=== PATIENT | male | born 1955 | race Caucasian/White ===

== ENCOUNTER 2016-12-27 16:25 | Inpatient (IN) | payer BC, SELFPAY ==
[~2016-12-27] VITALS: Ht 172.7 cm; Wt 102.6 kg
--- NOTE | ~2016-12-27 | CON ---
PATIENT'S NAME: KRISTY ERICKSON [facility] AGE: 61 Y [address] ROOM: [address] [place], [place] [address] LOCATION: GPCU ADMIT DATE: 12/27/2016 Consultation DISCHARGE DATE: FAMILY PHYSICIAN: Axel Valerio MD ATTENDING PHYSICIAN: JAZMIN LINARES DATE OF CONSULTATION: 12/29/2016 REFERRING PHYSICIAN: Vidal Mcpherson MD REASON FOR CONSULTATION: Anemia. HISTORY OF PRESENT ILLNESS: This is a very pleasant 61-year-old male, who was admitted on 12/27/16 with complaints of shortness of breath and chest pain. The patient has a past medical history of coronary artery disease, status post stenting to RCA as well as circumflex a few years ago. He presented to the emergency room with complaints of progressively worsening shortness of breath exertional in nature as well as chest pain across his chest. He does characterize this as burning with some questionable radiation to bilateral arms. He denied any precious nausea, vomiting, or abdominal pain with this. He recently was found to have significant fatigue at home and seen by his Cardiology Group. At that time, he was found to have a hemoglobin of 9.0 where workup endured including an upper endoscopy and colonoscopy completed on 12/21/2016. The patient was found to have extensive diverticulosis, a large hiatal hernia though no evidence of any mucosal abnormalities relating to his anemia. He then further went on to have a small bowel series on 12/25/2016 that was a normal study. We were asked to see in regard to his anemia as well as likely need for long- term anticoagulation. The patient was seen and examined. He denies any precious abdominal pain, nausea, vomiting, fever, or chills. He does admit to significant fatigue as well as shortness of breath. He did undergo heart catheterization on 12/28/2016. He likely will need his LAD stented though no stent was placed currently at this time. We were asked to see from Cardiology standpoint for clearance for long-term anticoagulation with his known recent history of anemia as well as suspected melena. He denies that it was black in color though he did state that after it disintegrated in the toilet water, it became bright red. He also noted some bright red when wiping along with "normal stool." The patient again denies any current chest pain, chest pressure, shortness of breath, fever, chills, night sweats. He does state that his weight has been stable as well. PAST MEDICAL HISTORY: Coronary artery disease, status post stenting to the RCA and circumflex; PATIENT'S NAME: KRISTY ERICKSON [facility] AGE: 61 Y [address] ROOM: [place] [address] LOCATION: GPCU ADMIT DATE: 12/27/2016 Consultation DISCHARGE DATE: FAMILY PHYSICIAN: Axel Valerio MD ATTENDING PHYSICIAN: JAZMIN LINARES A questionable history of hypertension; and diverticulosis. PAST SURGICAL HISTORY: Multiple heart catheterizations with the most recent being on 12/28/2016. SOCIAL HISTORY: The patient is a single gentleman who lives by himself. He denies any toxic habits such as alcohol, tobacco, or illicit drug use. FAMILY HISTORY: He does state that his mother had significant "bowel problems" though could not elaborate anymore. His father did have significant coronary artery disease. ALLERGIES: NO KNOWN MEDICATION ALLERGIES. CURRENT MEDICATIONS: Please refer to the medication administration record. REVIEW OF SYSTEMS: A 10-point review of systems was completed. All were negative except for those identified in the history of present illness. PHYSICAL EXAMINATION: GENERAL: A very pleasant 61-year-old male, who is lying in bed, who appears to be in no acute distress. VITAL SIGNS: Temperature 98.0, pulse of 87, respirations of 20, blood pressure 127/67, oxygen saturations 94% on room air. SKIN: [place], warm, and dry. No jaundice. HEENT: Head is normocephalic and atraumatic. Pupils are equal, round, and reactive to light. Sclerae are clear. Nonicteric. Oral mucosa is pink and moist. No thyromegaly. NECK: Soft and supple. CARDIOVASCULAR: Regular normal S1 and S2. RESPIRATORY: Respirations even and unlabored. LUNGS: Clear to auscultation. ABDOMEN: Soft, round, nontender, and nondistended. Bowel sounds positive x4 quadrants. MUSCULOSKELETAL: No muscle weakness or atrophy. EXTREMITIES: No clubbing, cyanosis, or edema. NEUROLOGIC: Grossly nonfocal. LABS AND DIAGNOSTICS: White blood cell count of 5.6, hemoglobin of 9.3, hematocrit of 30.3, MCV of 73.9, and platelets of 189. Chemistry panel includes a glucose of 89, BUN of PATIENT'S NAME: KRISTY ERICKSON [facility] AGE: 61 Y [address] ROOM: [address] [place], [place] [address] LOCATION: GPCU ADMIT DATE: 12/27/2016 Consultation DISCHARGE DATE: FAMILY PHYSICIAN: Axel Valerio MD ATTENDING PHYSICIAN: JAZMIN LINARES 14, creatinine 1.0, sodium of 141, potassium of 4.1, chloride of 111, CO2 of 20. Liver enzymes have all been within normal limits. Hemoglobin A1c of 5.7. Lipid panel includes cholesterol of 158, triglycerides of 127, HDL of 32, VLDL of 25, and LDL of 101. Iron studies completed on 12/27/2016 showed iron of 15, TIBC is 393, percent saturation of 4, ferritin is 7.50. TSH at that time was 2.510. ASSESSMENT AND PLAN: Again, this is a very pleasant 61-year-old male, who was admitted with chest pain who underwent a heart catheterization without stenting on 12/28/2016. The patient has had a recent anemia with a hemoglobin of 9. 1. Anemia, likely iron deficient from iron studies completed with a low iron at 15 and percent saturation of 4. The patient has recently undergone an upper endoscopy and colonoscopy without any evidence or etiology for the anemia. Small bowel series was also completed that was within normal limits. Questionable, if this the patient had a diverticular bleed that currently has now resolved. At this time, it is recommended for the patient to be given iron supplements for his deficiency. Due to recent GI workup with an upper endoscopy and colonoscopy, no further scopes are needed. Questionable, if the patient should undergo a capsule endoscopy for further evaluation of the small bowel, ruling out etiology for small bowel bleed. This will be discussed with Dr. Vidal Mcpherson for further recommendations. 2. Long-term anticoagulation. Again, the patient's GI system has been thoroughly evaluated with a recent upper endoscopy and colonoscopy. The patient may need to be given long-term anticoagulation, knowing the risk of possible rebleed though the risks and benefits of long-term anticoagulation does benefit utilizing his long-term anticoagulation with possible continue monitoring of the patient's GI tract. Thank you for this consult and allowing us to participate in the care of this patient. LETICIA WARD APRN FOR MD ANDREA GRESHAM/juan miguel /[id number] d: 12/29/16 1149 t: 01/04/17 1644, CONSULTATION REPORT
--- NOTE | ~2016-12-27 | CATH ---
Cardiac Diagnostic + PCI Report Demographics Patient Name DRE Willett Gender Male Date of 1955 Age 61 year(s) Patient Number [id number] Date of Study 12/28/2016 Visit Number [id number] Room Number G6[address] [place] [id number] Ht 172.72 cm Wt 97.5 kg Referring Iman Reyna Primary Physician Physician Haley GOLDSTEIN Performing Efstratiou Secondary Physician Physician Shannon Pike MD Diagnostic Efstratiou Assisting Physician Physician Shannon Pike MD Interventional Efstratiou Physician Quality Systems Manager Physician Shannon Pike MD Findings and Conclusions Diagnostic Findings and Conclusion Patent RCA and Circ stents Mid LAD stenosis with ischemic FFR. Patient is experiencing blood loss anemia and wasbeing transfused on arrival to the quality assurance lab technician. The LAD does no have angiographic characteristic of imminent closure. Diagnostic Recommendations WIll discuss with GI about his best revascularization options. Procedure Description The patient was brought to the diagnostic cardiac catheterization-EP laboratory in the fasting, non-sedated state. Informed consent was obtained in the written and verbal form after the risks and benefits were explained. The patient had no further questions and agreed to proceed. The planned puncture-incision site(s) were shaved and prepped with ChloraPrep and draped in the usual sterile manner. Conscious sedation, supplemental oxygen, and pain control medications were delivered by a registered nurse under physician guidance. Surface ECG rhythm, blood pressure measurement, and pulse oximetry were monitored throughout the procedure. Arterial access. The access site was infiltrated with lidocaine. The vessel was entered with the Seldinger technique. A sheath was advanced into the vessel and used for catheter placement. Left heart catheterization. A catheter was advanced across the aortic valve to the left ventricle under fluoroscopic guidance. Resting hemodynamics were obtained. Selective left coronary angiography. A catheter was advanced into the left coronary vessel ostium under Fluoroscopic guidance. Contrast was injected by hand. Images were obtained in multiple projections. Selective right coronary angiography. A catheter was advanced into the right coronary vessel ostium under fluoroscopic guidance. Contrast was injected by hand. Images were obtained in multiple projections. FFR measurement was performed. The vessel was entered with a guiding catheter. The FFR wire was normalized and then advanced across the lesion. Maximum hyperemia was achieved using adenosine. Arterial artery hemostasis was achieved. The patient was transferred to a regular nursing floor via cart accompanied by a nurse. The patient left the laboratory in stable condition. Diagnostic Cath Status: Urgent Procedure Procedure Type Diagnostic procedure:Angiography:, Coronary Angios w/[facility] PCI procedure:Additional Imaging:, FFR/iFR: Indications: NSTEMI. The procedure was explained in detail to the patient. Risks, complications and alternative treatments were reviewed. Written consent was obtained. Medications Reviewed with Patient prior to Procedure. Angiographic Findings Dominance: Right Cardiac Arteries and Lesion Findings LMCA: Lesion on LMCA: Distal subsection.30% stenosis . LAD: LAD long area in mid vessel narrowed 50-70%. Lesion on Mid LAD: Mid subsection.70% stenosis . Pre procedure CLOVIS III flow was noted. Culprit lesion. FFR + + + + !FFR !Stage/Medication !Dosage ! + + + + !0.71 !Adenosine (I.V) !140 ! + + + + Devices used - Verrata Pressure Wire. Number of passes: 1. Lesion on 1st Dia% stenosis . LCx: Circ mid vessel patent stent. Distal vessel stent jailed with 60% ostial narrowing.There is a previous stent on Mid CX showing wide patency. Lesion on Mid CX: Ostial.40% stenosis . RCA: RCA long proximal stents area about 30% narrowed-RV branch jailed with 60% ostial narrowing.There is a previous stent on Prox RCA Mid subsection showing focal ISR. Coronary Tree Procedure Data Procedure Date Date: 12/28/2016Start: 04:47 PMEnd: 05:43 PM Entry Locations - Retrograde Percutaneous access was performed through the Right Radial artery (Primary location). A 6 Fr sheath was inserted. Unsuccessful closure attempt was performed using: an R band. Hemostasis was successfully obtained using Mechanical Compression. Closure Comments: Radial band applied by Emil, 15 ml of air. Procedure Medications Order and Administration + + + +---------+ !Time !Medication !Dosage !Route ! + + + +---------+ 12/28/2016 !Pack Red Blood Cells !1 units !I.V. ! !04:05 PM ! ! ! ! + + + +---------+ 12/28/2016 !Fentanyl !50 mcg !I.V. ! !04:42 PM ! ! ! ! + + + +---------+ 12/28/2016 !Versed !1 mg !I.V. ! !04:42 PM ! ! ! ! + + + +---------12/28/2016 !PAE Radial Cocktail: Heparin 5000 ! !I.A. ! !04:49 PM !units, Nitroglycerin 200mcg, ! ! ! ! !Verapamil 3 mg (ACC_3) ! ! ! + + + +---------12/28/2016 !0.9% NaCl !200 ml !I.V. ! !04:53 PM ! ! !bolus ! + + + +---------12/28/2016 !Oxygen !2 l/min !NC ! !04:54 PM ! ! ! ! + + + +---------12/28/2016 !Fentanyl !50 mcg !I.V. ! !04:57 PM ! ! ! ! + + + +---------12/28/2016 !Heparin (ACC_3) !3000 units !I.V. ! !05:09 PM ! ! !bolus ! + + + +---------+ !12/28/2016 !Heparin (ACC_3) !5000 units !I.V. ! !05:16 PM ! ! !bolus ! + + + +---------+ !12/28/2016 !Adenosine (IV) !140 !I.V. drip! !05:29 PM ! !mcg/kg/min ! ! + + + +---------+ !12/28/2016 !Adenosine (IV) ! !I.V. drip! !05:31 PM ! ! ! ! + + + +---------+ !12/28/2016 !Oxygen ! !NC ! !05:38 PM ! ! ! ! + + + +---------+ Devices Used - A6 Fr. BS JR 4 Diag. Catheterwas used for:Right coronary angiography. - A6 Fr. BS JL 3.5 Diag. Catheterwas used for:Left coronary angiography. - A6 Fr. XBLAD 3.5 Guide Catheterwas used for:Fractional Flow [place] measurments. Contrast Material - Isovue 13515 ml Fluoroscopy Time: Diagnostic: 11:18 minutes. Total: 11:18 minutes. Fluoroscopy Dose: Diagnostic: 1456 mGy. Total: 1456 mGy. Estimated Blood Loss: 20 ml. Medical History Performed Procedures and Imaging Results - No ACC stress or imaging studies were performed. Allergies - Other:(Mycins). Risk Factors The patient risk factors include:prior PCI;family history of premature CAD, last creatinine: 1 mg/dl, creatinine clearance: 108.33 ml/min, dyslipidemia and prior [place] . Admission Data Admission Date: 12/27/2016 Admission Time: 05:40 PM Admit Source: Emergency department Insurance Payors: Private health insurance. Admission Medications + +------+-------+ + + + + !Medication!Dosage!Times !Last !Last !Administered !Comments ! ! ! !Per Day!Delivery !Delivery ! ! ! ! ! ! !Date !Time ! ! ! + +------+-------+ + + + + !Aspirin ! ! ! ! !Yes ! ! !(any) ! ! ! ! ! ! ! + +------+-------+ + + + + !Statin ! ! ! ! !Yes ! ! !(any) ! ! ! ! ! ! ! + +------+-------+ + + + + Clinical Evaluation Leading to Procedure - The patient's CAD presentation was assessed as: Non-STEMI. - The patient's anginal syndrome during the past two weeks was assessed as: Class IV according to the [place] Cardiovascular Society Classification System (CCS). Snapshots Hemodynamics Condition: Rest Estimated: Heart Rate: 89 bpm Pressures (mmHg) +-----+ + !Site !Pressure ! +-----+ + !AO !103/68 (79) ! +-----+ + !LV !140/0 ,11 ! +-----+ + !LV !62/3 ,-8 ! +-----+ + !AO !105/70 (87) ! +-----+ + !LV !129/0 ,13 ! +-----+ + !AO !/72 () ! +-----+ + Shunts Oxygen Values O2 Capacity 122.4 Signatures dtt: Sabra Warren dtd: 12/28/16 1647 Physician Self Edit
--- NOTE | ~2016-12-27 | ER ---
PATIENT'S NAME: KRISTY ERICKSON [facility] AGE: 61 Y [address] ROOM: [place] [address] LOCATION: GPCU ADMIT DATE: 12/27/2016 ER/Outpatient Report DISCHARGE DATE: FAMILY PHYSICIAN: Axel Valerio MD ATTENDING PHYSICIAN: JAZMIN GOOD TIME OF ARRIVAL: 16:24. TIME OF EVALUATION: 16:24. CHIEF COMPLAINT: Chest pain. HISTORY OF PRESENT ILLNESS: The patient is a 61-year-old male, who presented to the Emergency Department today with the chief complaints of chest pain and dyspnea on exertion. He reports this started about 24 hours prior to arrival. He reports that every time he gets up to walking, where he gets extremely short of breath. He gets diaphoretic with it. He has been feeling weak and ill for the past three weeks. The patient recently had gastrointestinal bleed with some dark stools. He underwent a colonoscopy and endoscopy at [facility] He denies any orthopnea. He denies any ripping or tearing sensation. No radiation to his back. No radiation. The pain is currently 10/10 in severity. PAST MEDICAL HISTORY: 1. Coronary artery disease with stents to right coronary artery and circumflex. 2. Hypertension. 3. Recent gastrointestinal bleeding. PAST SURGICAL HISTORY: 1. Left hernia. 2. Laminectomy. 3. Stents to circumflex. SOCIAL HISTORY: The patient denies any tobacco use. He reports occasional alcohol use. He denies illicit drug use. PATIENT'S NAME: KRISTY ERICKSON [facility] AGE: 61 Y [address] ROOM: [place] [address] LOCATION: GPCU ADMIT DATE: 12/27/2016 ER/Outpatient Report DISCHARGE DATE: FAMILY PHYSICIAN: Axel Valerio MD ATTENDING PHYSICIAN: JAZMIN GOOD ALLERGIES: NONE KNOWN TO MYCINS. MEDICATIONS: Please see list. REVIEW OF SYSTEMS: All systems were reviewed by myself, and are negative with the exception of those discussed in history of present illness and past medical history. PHYSICAL EXAMINATION: VITAL SIGNS: Blood pressure was 132/81, pulse was 100, respiratory rate was 20, temperature was 99.0, and oxygen saturation was 96% on room air. GENERAL: The patient is a 61-year-old male, who appeared his stated age, in no acute distress. HEENT: Head: Normocephalic and atraumatic. Eyes: Pupils are equal, round, and reactive to light and accommodation. Extraocular motions are intact. Mildly pale conjunctivae. NECK: Supple. There is no nuchal rigidity. CARDIOVASCULAR: Tachycardic. No murmurs, rubs, or gallops. LUNGS: Clear to auscultation bilaterally. No wheezes, rales, or rhonchi. ABDOMEN: Soft, nontender, and nondistended. No rebound, rigidity, or guarding. MUSCULOSKELETAL: The patient moves all four extremities. SKIN: Warm and dry. There are no rashes or lesions noted. LABORATORY DATA AND DIAGNOSTIC STUDIES: Labs and x-rays are obtained. EKG is obtained, was interpreted by myself and showed sinus rhythm with a rate of 94, normal axis, and normal interval. No ST elevation or ST depression. There were T-wave inversions in V1, V2, and V3. These are new T-wave inversions compared to the EKG on 09/17/2013. Complete blood count is unremarkable, except for hemoglobin of 9.8. Coags are normal. ProBNP is 820. Comprehensive metabolic panel is unremarkable. Liver function tests are normal. PATIENT'S NAME: KRISTY ERICKSON [facility] AGE: 61 Y [address] ROOM: [place] [address] [facility] ADMIT DATE: 12/27/2016 ER/Outpatient Report DISCHARGE DATE: FAMILY PHYSICIAN: Axel Valerio MD ATTENDING PHYSICIAN: JAZMIN GOOD Mag is normal. Troponin is elevated at 0.094. Chest x-ray showed cardiomegaly, which is stable. No acute process. IMPRESSION: 1. [id number] myocardial infarction. 2. History of recent gastrointestinal bleeding. 3. Acute blood loss anemia. 4. History of coronary artery disease, status post stenting to the right coronary artery and circumflex. 5. Initial visit. EMERGENCY DEPARTMENT COURSE: The patient was brought back to the Examination Room. Seen and evaluated by myself. IV was established. Laboratory analysis and imaging were obtained as described above. The results are obtained as described above. Due to the patient's recent gastrointestinal bleed, aspirin and heparin were held due to the risk of bleeding. I have discussed the results with the patient. Recommendation is admission to the hospital for further evaluation, treatment, and management. I have contacted Dr. Good and discussed the case with him. He has seen and evaluated the patient now here in the Emergency Department. Please see his dictation. DISPOSITION: The patient was admitted under the care of Hospitalist Service and Dr. Good in stable condition. DO ROJAS YOUNG/juan miguel /[id number] d: 12/28/16 0723 t: 12/29/16 0757, OUTPATIENT REPORT
--- NOTE | ~2016-12-27 | CON ---
PATIENT'S NAME: KRISTY ERICKSON [facility] AGE: 61 Y [address] ROOM: [place] [address] LOCATION: GPCU ADMIT DATE: 12/27/2016 Consultation DISCHARGE DATE: FAMILY PHYSICIAN: Axel Valerio MD ATTENDING PHYSICIAN: JAZMIN LINARES REFERRING PHYSICIAN: Vidal Mcpherson MD REASON FOR CARDIOLOGY CONSULTATION: Chest pain. HISTORY OF PRESENT ILLNESS: This is a 61-year-old male with complaints of chest pain that he describes as burning. He also complains of some diaphoresis. He states he has been having some shortness of breath extremely as well as some presyncopal episode. No actual loss of consciousness or complete syncope. He has an extensive history of coronary artery disease with an inferior wall myocardial infarction in 2012 in which he received a stent to his RCA. He had further complaints of angina in 2014 and he received a stent to his circumflex at that time. He also recently has been noting some blood in his stool and had an upper and lower endoscopy with Dr. Flower at [facility]. That showed a normal upper endoscopy with extensive bilateral diverticulosis to his lower endoscopy. There were biopsies performed. He has minimally elevated troponins and does have inverted T-waves in his anterior wall. There is also a notation of previously untreated diagonal coronary artery disease. PAST MEDICAL HISTORY: 1. Coronary artery disease as stated in the HPI. 2. Hypertension. 3. Previous anemia from a suspected GI bleed. 4. GERD. 5. Hyperlipidemia. PAST SURGICAL HISTORY: 1. Partial laminectomy to L3 and a full laminectomy to L4. 2. Hernia repair x2. FAMILY HISTORY: There is noted family history of "heart problems." He also has a sister with a history of diverticulitis and a heart murmur. SOCIAL HISTORY: The patient denies ever using tobacco. He does admit to alcohol use on 3 days a week, and on those days, he will have 1 alcoholic drink. He denies illicit drug use. CURRENT MEDICATIONS: PATIENT'S NAME: KRISTY ERICKSON [facility] AGE: 61 Y [address] ROOM: [place] [address] LOCATION: GPCU ADMIT DATE: 12/27/2016 Consultation DISCHARGE DATE: FAMILY PHYSICIAN: Axel Valerio MD ATTENDING PHYSICIAN: JAZMIN LINARES 1. Heparin IV per ACS protocol. 2. Protonix 80 mg IV twice daily. 3. Benadryl 25 mg p.o. radiation / chemistry technician at the OR. 4. Lipitor 80 mg p.o. daily in the evening. 5. Valium 5 mg p.o. radiation / chemistry technician at the OR. MEDICATION ALLERGIES: No known medication allergies. REVIEW OF SYSTEMS: Pertinent positive review of systems listed in HPI. All other review of systems evaluated and negative. PHYSICAL EXAMINATION: VITAL SIGNS: Temperature 98.3, pulse 83, respirations 20, blood pressure 144/76, and O2 saturation 94% on room air. The patient weighs 97.5 kg. SKIN: [place], warm, and dry. EYES: Sclerae clear. No xanthelasmas. ENT: Oral mucosa is pink and moist. No jugular venous distention. No carotid bruits. CHEST: Respirations are even and unlabored. Lungs are clear to auscultation. HEART: Regular rate and rhythm. Normal S1, S2. No murmurs, rubs, or gallops. ABDOMEN: Soft and nontender. MUSCULOSKELETAL: Gait is normal. EXTREMITIES: Peripheral pulses palpable. No clubbing, cyanosis, or edema. PSYCH: Alert and oriented. Mood and affect are appropriate. IMPRESSION AND PLAN: Per Dr. Warren: 1. Unstable angina. 2. Previous history of coronary artery disease with stenting. 3. Hypertension. 4. Recent gastrointestinal bleeding with upper and lower endoscopy completed. Plan will be to proceed with a selective coronary angiography and possible percutaneous intervention in the a.m. We have talked to Dr. Mcpherson and the Hospitalist Service and the patient himself is also aware that dual anti- platelet therapy could result in further bleeding. We will check an echocardiogram to fully evaluate ejection fraction as well as look for wall motion valvular abnormalities. We will continue to monitor, evaluate, and treat as appropriate. Thank you for this consult. Thank you for allowing [facility] to interact in the care of this patient. PATIENT'S NAME: KRISTY ERICKSON [facility] AGE: 61 Y [address] ROOM: [place] [address] LOCATION: GPCU ADMIT DATE: 12/27/2016 Consultation DISCHARGE DATE: FAMILY PHYSICIAN: Axel Valerio MD ATTENDING PHYSICIAN: JAZMIN LINARES BRIANNE BURROWS MD DEH/modl /[id number] d: 12/28/161999 t: 01/13/17 1037, CONSULTATION REPORT
--- NOTE | ~2016-12-27 | DS ---
PATIENT'S NAME: KRISTY ERICKSON [facility] AGE: 61 Y [address] ROOM: G6322 [place], [place] [address] LOCATION: GPCU ADMIT DATE: 12/27/2016 Discharge Summary DISCHARGE DATE: FAMILY PHYSICIAN: Axel Valerio MD ATTENDING PHYSICIAN: Jazmin Good PRINCIPAL DIAGNOSIS: Non-ST elevation myocardial infarction. SECONDARY DIAGNOSES: 1. Microcytic anemia. 2. Iron deficiency. 3. Acute blood loss anemia. 4. History of coronary artery disease. HOSPITAL COURSE: A 61-year-old gentleman with a past medical history of coronary artery disease status post right coronary artery and circumflex stenting in the past, presented to the emergency department with chief complaint of shortness of breath as well as heartburn around the chest. Initial evaluation in the emergency department showed T-wave inversion in the EKG as well as elevation in the troponin levels, which went up to 1.42. Cardiology consultation was made and the patient was taken to the catheterization lab the next day. There was diffuse disease of LAD, likely 70% per Cardiology verbal report, which needs intervention. The patient was found to be anemic with a hemoglobin around 9 with the ferritin level of 7. There was concern of acute GI bleeding and need of dual antiplatelet after the stent placement. No intervention was done at that point. [facility] patient had colonoscopy as well as upper endoscopy done about 2 weeks ago. Those reports showed that he had extensive diverticulosis, but no active bleeding on that day was noted. Given this scenario, GI consultation was made and they recommended doing a capsule endoscopy, which they recommended doing as an outpatient. It was discussed with Cardiology and they wanted the patient discharged home on the same medication at this point. They said once the capsule endoscopy is done and he is cleared from the Gastroenterology standpoint, we will go ahead and do the stenting of the LAD in future. During the course of the hospitalization, he was given 2 units of packed red blood cells and two infusion of iron. He will be discharged home with close followup with Gastroenterology. DISCHARGE MEDICATIONS: 1. Aspirin 81 mg p.o. every day. 2. Plavix 75 mg p.o. every day. 3. Lipitor 80 mg p.o. every day. 4. Metoprolol 12.5 mg p.o. twice daily. 5. Amlodipine 2.5 mg p.o. every day. PATIENT'S NAME: KRISTY ERICKSON [facility] AGE: 61 Y [address] ROOM: [id number] [place] [id number] [facility] ADMIT DATE: 12/27/2016 Discharge Summary DISCHARGE DATE: FAMILY PHYSICIAN: Axel Valerio MD ATTENDING PHYSICIAN: Jazmin Good 6. Pantoprazole 40 mg p.o. daily. 7. Nitroglycerin 0.4 mg sublingual as needed p.r.n. for chest pain. 8. Iron sulfate 325 mg p.o. t.i.d. 9. Cyanocobalamin 1000 mcg p.o. once daily. 10. Folic acid 1 mg p.o. b.i.d. DISCHARGE ACTIVITIES: As tolerated. DIET: Low-sodium diet. FOLLOWUP: Follow up with Gastroenterology in 3 days to schedule for the capsule endoscopy and then follow up with Dr. Hilliard from Cardiology to get LAD stenting done. CONDITION ON DISCHARGE: Fair. I spent 40 minutes in discharge planning and coordination of care in this patient. JAZMIN GOOD MD MARU/juan miguel /[id number] d: 12/30/[id number] t: 12/31/16 1519, DISCHARGE SUMMARY
--- NOTE | ~2016-12-27 | ECHO ---
Transthoracic Echocardiography Report (TTE) Demographics Patient Name KRISTY ERICKSON Date of Study 12/28/2016 Patient Number [id number] Visit Number [id number] Date of 1955 Room Number G6322 Gender Male Number Age 61 year(s) Referring Iman De Leon Counter Hop Josh Moreau Physician MD Florentino Chahal MD Physician Interpreting Briana Ortega Labor [employer] Employment Paralegal Physician Shahzad GOLDSTEIN Supervising Ordering Florentino Chahal MD/MLP Physician Nurse Stress Channel Machine Operator Conclusions Contractility Score Summary Normal Left Ventricular contractility was noted. Summary The estimated left ventricular ejection fraction is 55%. Mild concentric left ventricular hypertrophy. Diastolic assessment reveals Grade I diastolic dysfunction. The right atrium is mildly dilated. Procedure Type of Study TTE procedure:2D Echocardiogram, M-Mode, Doppler , Color Doppler. Procedure Date Date: 12/28/2016 Start: 07:11 AM Study Location: Inpatient Portable Technical Quality: Adequate visualization Indications:Chest pain and Elevated Troponin. Additional Indications:NSTEMI Appropriate Use Criteria: 9 Patient Status: Routine HR: 83 bpm BP: 105/64 mmHg Allergies - Other:(Mycins). M-Mode/2D Measurements LV Diastolic Dimension: 4.34 cm LV Systolic Dimension: 2.95 cm LV Septum Diastolic: 1.24 cm LV PW Diastolic: 1.17 cm AO Root Dimension: 3 cm Cardiac Output: 5.03 l/min LA Dimension: 2.9 cm EF Estimated: 55 % LVOT: 2 cm LVOT VTI: 19.3 cm RV Base: 2.68 cm LV Stroke volume: 60.6 ml RV Length: 7.97 cm TAPSE: 1.94 cm TDI-S': 10.5 cm/s Doppler Measurements AV Peak Velocity: 1.35 m/s MV Peak E-Wave: 0.62 m/s AV Peak Gradient: 7.29 mmHg MV Peak A-Wave: 0.87 m/s AV Mean Gradient: 5 mmHg MV E/A Ratio: 0.71 LVOT Peak Velocity: 1.01 m/s MV P1/2t: 58 msec TR Gradient:13.99 mmHg PV Peak Velocity: 0.71 m/s Estimated RAP:3 mmHg PV Peak Gradient: 2.03 mmHg Estimated RVSP: 17 mmHg Estimated PASP: 16.99 mmHg E' Septal Velocity: 0.06 m/s A' Septal Velocity: 0.1 m/s E' Lateral Velocity: 0.1 m/s A' Lateral Velocity: 0.14 m/s Findings Left Ventricle Mild concentric left ventricular hypertrophy. Diastolic assessment reveals Grade I diastolic dysfunction. Right Ventricle Normal right ventricle structure and function. Left Atrium Normal left atrial size. Right Atrium The right atrium is mildly dilated. IVC measures 1.83 cm with inspiratory collapse. Mitral Valve Mild mitral annular calcification. Aortic Valve The aortic valve is mildly sclerotic. Tricuspid Valve Trivial tricuspid regurgitation by color Doppler. Pulmonic Valve Normal pulmonic valve structure and function. Pericardial Effusion No evidence of pericardial effusion. Miscellaneous Visualized portions of the aortic root and ascending aorta appear normal in size. Pleural Effusion No evidence of pleural effusion. Contractility Score LV regional wall motion:(0-Non visualized 1-Normal 2-Hypokinesis 3-Akinesis 4-Dyskinesis 5-Aneurysm) Signature dtt: Sabra Warren dtd: 12/28/16 0711 Physician Self Edit
--- NOTE | ~2016-12-27 | HP ---
PATIENT'S NAME: KRISTY ERICKSON [facility] AGE: 61 Y [address] ROOM: [place] [address] LOCATION: GPCU ADMIT DATE: 12/27/2016 History & Physical DISCHARGE DATE: FAMILY PHYSICIAN: Axel Valerio MD ATTENDING PHYSICIAN: JAZMIN LINARES DATE OF SERVICE: CHIEF COMPLAINT: Shortness of breath and heartburn. HISTORY OF PRESENT ILLNESS: A 61-year-old gentleman with a past medical history of coronary artery disease, status post stenting to RCA as well as circumflex couple of years ago. He presented to the emergency department today with shortness of breath which has been going on for couple of weeks now, progressively getting worse, exertional in nature, associated with pain around his eyes as well as across the chest, which is characterized as burning, 5/10, questionable radiation to both arms, associated with diaphoresis but no nausea or vomiting, but significant dizziness has been reported as well. On further inquiry, he denied having any PND, orthopnea, or leg swelling. He also reported he has been having dark tarry stools for a couple of weeks now and he went to the [facility] and ended up getting upper endoscopy as well as lower endoscopy. He also underwent barium series, but he does not know the results of those. REVIEW OF SYSTEMS: All the systems reviewed and were negative except what is mentioned in the HPI. PAST MEDICAL HISTORY: 1. Coronary artery disease, status post stent to RCA as well as circumflex. 2. Questionable history of hypertension. MEDICATIONS: Please see MAR. ALLERGIES: NO KNOWN DRUG ALLERGIES. FAMILY HISTORY: Family history significant for significant coronary artery disease in dad. PHYSICAL EXAMINATION: VITAL SIGNS: Blood pressure 146/79, 78, 16, afebrile, saturating fine on room PATIENT'S NAME: GEOVANNYKRISTY Pike [facility] AGE: 61 Y [address] ROOM: [place] [address] LOCATION: GPCU ADMIT DATE: 12/27/2016 History & Physical DISCHARGE DATE: FAMILY PHYSICIAN: Axel Valerio MD ATTENDING PHYSICIAN: JAZMIN LINARES air. GENERAL: In no acute distress. Alert, oriented x3. HEENT: Head: Atraumatic, normocephalic. Eyes: Nonicteric. No pallor. Oropharynx: Dry mucous membranes. CARDIOVASCULAR: S1 and S2. No murmurs, gallops, or rubs. LUNGS: Clear to auscultation bilaterally. ABDOMEN: Soft, nontender, and nondistended. Bowel sounds are present. EXTREMITIES: No clubbing, cyanosis, or edema. PSYCH: Normal affect, mood, and speech. NEURO: Cranial nerves 2 through 12 intact. No motor or sensory deficits. MUSCULOSKELETAL: No muscle tenderness or swelling noted. DIAGNOSTIC DATA: Chest x-ray done in the emergency department today did not reveal any acute infiltrate or pulmonary edema. EKG done in the emergency department showed T- wave inversions in V1, V2, and V3, which are new from the previous EKGs. First set of troponin was elevated at 0.094. Next set is pending at this point. ProBNP is elevated 820. CBCs impressive for microcytic anemia with a hemoglobin of 9.8. BMP was largely unremarkable. ASSESSMENT/PLAN: 1. Non ST-elevation myocardial infarction. 2. Melena. 3. Gastrointestinal bleeding. 4. Acute blood loss anemia. 5. History of coronary artery disease, status post right coronary artery and circumflex stenting. PLAN: We are going to admit this patient. We are going to give him only baby aspirin 81 mg given his ongoing GI bleeding. We are going to treat him with Lipitor 80 mg. We are going to get stat results of the endoscopy which was done over at the [facility] not so long ago. Based on those results, we have to anticoagulate this patient. Cardiology consultation will be obtained. Based on his hemodynamic status, he might benefit from Gastroenterology consultation as well. We are going to start him on high dose of pantoprazole at this point. Further management will depend on his progress in this hospitalization. JAZMIN LINARES MD PATIENT'S NAME: KRISTY ERICKSON [facility] AGE: 61 Y [address] ROOM: [place] [address] [facility]: [facility] ADMIT DATE: 12/27/2016 History & Physical DISCHARGE DATE: FAMILY PHYSICIAN: Axel Valerio MD ATTENDING PHYSICIAN: JAZMIN LINARESl /[id number] D: [id number] T: [id number] HISTORY & PHYSICAL
[2016-12-27 16:58] LABS: BASOPHIL % 0.4 %; EOSINOPHIL # 0.3 K/uL (0.0-0.5); EOSINOPHIL % 4.5 %; HEMATOCRIT 34.2 % (37.0-53.0); HEMOGLOBIN 9.8 g/dL (11.0-16.0); IMMATURE GRANULOCYTE % 0.3 %; LYMPHOCYTE # 1.1 K/uL (0.8-4.0); LYMPHOCYTE % 14.9 %; MCH 21.7 pg (27.0-34.0); MCHC 28.7 gm/dL (32.0-36.5); MCV 75.8 fl (83.0-98.0); MONOCYTE # 0.5 K/uL (0.0-1.0); MPV 9.9 fl (9.4-12.4); NEUTROPHIL # (ANC) 5.3 K/uL (1.4-9.0); NEUTROPHIL % 72.9 %; NRBC % 0 /100WBC (0-0.00); PLATELET COUNT 225 K/uL (150-450); RBC 4.51 M/uL (3.50-5.50); RDW-CV 18.1 % (11.9-14.6); WBC 7.3 K/uL (4.0-11.0)
[2016-12-27 17:08] LABS: PROTIME 10.7 SECONDS (9.6-11.1); PTT 24 SECONDS (25-32)
[2016-12-27 17:18] LABS: ALBUMIN 3.4 gm/dL (3.5-5.0); ALK PHOS 116 IU/L (33-138); ALT 24 IU/L (12-78); ANION GAP 14.1 (10.0-19.0); AST 27 IU/L (10-40); BLOOD UREA NITROGEN 13 mg/dL (6-24); CALCIUM 8.1 mg/dL (8.5-10.5); CHLORIDE 108 mMol/L (96-110); CO2 22 mMol/L (22-32); CPK 184 IU/L (35-332); CREATININE 1.1 mg/dL (0.6-1.3); ESTIMATED GFR (MDRD EQUATION) > 60; MAGNESIUM 2.3 mg/dL (1.3-2.6); POTASSIUM 4.1 mMol/L (3.7-5.1); SODIUM 140 mMol/L (135-145); TOTAL BILIRUBIN 0.4 mg/dL (0.0-1.5); TOTAL PROTEIN 7.6 g/dL (6.0-8.4)
[2016-12-27] MEDS ORDERED: NITROSTAT0.4 MG SL (20:04)
[2016-12-27] MEDS ORDERED: LIPITOR80 MG PO (20:05)
[2016-12-27] MEDS ORDERED: ASPIR-TRIN325 MG PO (20:05)
[2016-12-27 21:07] LABS: HEMATOCRIT 32.2 % (37.0-53.0); HEMOGLOBIN 9.3 g/dL (11.0-16.0)
--- NOTE | 2016-12-28 01:03 | NUR ---
Patient arrived to PCU at 1925 from ER for chest pain. Patient was at home when he began feeling short of breath and reports feeling like he was "blacking out" at times, so he called 911. Patient lives at home alone. Dr. Good saw patient in ER and Dr. Hilliard saw patient when he arrived to the floor. Patient has no complaints of pain upon arriving to the floor, just states that his chest does feel somewhat tight. Vitals stable: 98.4 temp, 134/84, 90bpm, 95% on RA, 20 resp/min. Patient is A/Ox3. Calm and cooperative with cares. Dr. Hilliard does plan to complete a heart cath for patient tomorrow.
[2016-12-28 05:46] LABS: BASOPHIL % 0.7 %; EOSINOPHIL # 0.4 K/uL (0.0-0.5); EOSINOPHIL % 6.1 %; HEMATOCRIT 29.9 % (37.0-53.0); IMMATURE GRANULOCYTE % 0.2 %; LYMPHOCYTE # 1.6 K/uL (0.8-4.0); LYMPHOCYTE % 26.6 %; MCH 22.4 pg (27.0-34.0); MCHC 30.1 gm/dL (32.0-36.5); MCV 74.6 fl (83.0-98.0); MONOCYTE # 0.6 K/uL (0.0-1.0); MONOCYTE % 10.2 %; MPV 9.2 fl (9.4-12.4); NEUTROPHIL # (ANC) 3.3 K/uL (1.4-9.0); NEUTROPHIL % 56.2 %; NRBC % 0 /100WBC (0-0.00); PLATELET COUNT 191 K/uL (150-450); RBC 4.01 M/uL (3.50-5.50); RDW-CV 18.1 % (11.9-14.6); WBC 5.9 K/uL (4.0-11.0)
[2016-12-28 06:14] LABS: ANION GAP 12.1 (10.0-19.0); BLOOD UREA NITROGEN 15 mg/dL (6-24); CALCIUM 8.2 mg/dL (8.5-10.5); CHLORIDE 108 mMol/L (96-110); CO2 24 mMol/L (22-32); ESTIMATED GFR (MDRD EQUATION) > 60; POTASSIUM 4.1 mMol/L (3.7-5.1); SODIUM 140 mMol/L (135-145)
[2016-12-28 08:58] LABS: HEMOGLOBIN 8.9 g/dL (11.0-16.0)
[2016-12-28] MEDS ORDERED: NORVASC2.5 MG PO (10:18)
[2016-12-28] MEDS ORDERED: PLAVIX75 MG PO (10:18)
[2016-12-28] MEDS ORDERED: ASPIRIN325 MG PO (10:19)
[2016-12-28] MEDS ORDERED: LOPRESSOR25 MG PO (10:19)
--- NOTE | 2016-12-28 16:36 | NUR ---
Significant Event: AOx3, SBP 100s-140s, VS otherwise WNL on RA. Describes diffuse dull pain on left side of chest, rating 0-2/10. Lungs sound clear bilat. Elizabeth patent, draining yellow urine. C/o tenderness to tip of penis early in the morning and later states it resolved. No evidence of trauma or bleeding. 1 unit PRBCs started just prior to going to labor law professor. Heparin and NS infusing to L) PIV without complication. Pleasant and cooperative with cares. Follow up: Per plan of care post-cath.
[2016-12-28 19:08] LABS: HEMATOCRIT 32.4 % (37.0-53.0); HEMOGLOBIN 9.7 g/dL (11.0-16.0)
[2016-12-28 21:10] LABS: HEMATOCRIT 30.1 % (37.0-53.0)
[2016-12-29 03:49] LABS: BASOPHIL # 0.1 K/uL (0.0-0.2); BASOPHIL % 0.9 %; EOSINOPHIL # 0.3 K/uL (0.0-0.5); EOSINOPHIL % 5.9 %; HEMATOCRIT 30.3 % (37.0-53.0); HEMOGLOBIN 9.3 g/dL (11.0-16.0); IMMATURE GRANULOCYTE % 0.2 %; LYMPHOCYTE # 1.1 K/uL (0.8-4.0); LYMPHOCYTE % 18.7 %; MCH 22.7 pg (27.0-34.0); MCHC 30.7 gm/dL (32.0-36.5); MCV 73.9 fl (83.0-98.0); MONOCYTE # 0.6 K/uL (0.0-1.0); MONOCYTE % 9.8 %; MPV 8.6 fl (9.4-12.4); NEUTROPHIL # (ANC) 3.6 K/uL (1.4-9.0); NEUTROPHIL % 64.5 %; NRBC % 0 /100WBC (0-0.00); PLATELET COUNT 189 K/uL (150-450); RDW-CV 17.9 % (11.9-14.6); WBC 5.6 K/uL (4.0-11.0)
[2016-12-29 04:03] LABS: ANION GAP 14.1 (10.0-19.0); BLOOD UREA NITROGEN 14 mg/dL (6-24); CALCIUM 7.8 mg/dL (8.5-10.5); CHLORIDE 111 mMol/L (96-110); CO2 20 mMol/L (22-32); ESTIMATED GFR (MDRD EQUATION) > 60; POTASSIUM 4.1 mMol/L (3.7-5.1); SODIUM 141 mMol/L (135-145)
--- NOTE | 2016-12-29 04:45 | NUR ---
Significant Event: A/0 X 3. HAS REMINED IN BED ENTIRE SHIFT TURNS SELF VERY FREQUENTLY. SBP 100'S TO 130'S, HR 80-90'S. AFEBRILE. 02 SATS MID 90'S ON RA. CATH TO RIGHT RADIAL NOW HAS BAND-AID AND COBAND APPLIED WITH NO COMPLICATIONS, CSM WNL. 1 UNIT BLOOD INFUSED. HGB THIS AM 9.3. 1 L NS FINSIHED INFUSING, IV NOW SL. CONROY REMAINS WITH 1050 UOP. HAS NOT COMPLAINED OF ANY PAIN DURING SHIFT, NO PAIN MEDS GIVEN. Follow up: WILL NEED STENT TO LAD BUT NEED TO CLEAR WITH GI DUE TO ANTICOAGULANTS NEEDED AND GI ISSUES.
[2016-12-29 09:15] LABS: HEMOGLOBIN 9.7 g/dL (11.0-16.0)
--- NOTE | 2016-12-29 12:23 | NUR ---
Introduced self and CM role to patient late this morning. Plan is to return back to his apartment. He states he is nervous about going home because he feels really weak. He states he has his elderly mother that could help him but no siblings or other family members. Told pt I will follow along with his chart and check in with him if anything changes and to see how he is feeling when he is cleared to discharge. Current plan for home. Will continue to follow and provide assistance as needed. CM Vice Principal TH.
--- NOTE | 2016-12-29 16:00 | NUR ---
Significant Event: Patient A/O x 3. Up in hallways with minimal assistance. VSS on RA. Patient states he is short of breath with activity although O2 saturations remain >90%. Patient was to dismiss and then have GI scope outpatient and follow-up with Dr. Sterling at a later date for heart cath reevalutation, but refuses to be dismissed due to his friend stating it is a safety risk. Patient will stay until at least Wednesday for Dr. Mcpherson to scope him. L)hand and R)hand PIV, SL. Gave 1 unit PRBC's and started on IV iron x 3 doses. Follow up: Continue as per plan of care. Monitor H&H. Scope on Wednesday.
[2016-12-29 21:02] LABS: HEMATOCRIT 32.9 % (37.0-53.0); HEMOGLOBIN 10.1 g/dL (11.0-16.0)
[2016-12-30 04:22] LABS: BASOPHIL # 0.1 K/uL (0.0-0.2); BASOPHIL % 0.9 %; EOSINOPHIL # 0.4 K/uL (0.0-0.5); EOSINOPHIL % 6.2 %; HEMATOCRIT 34.3 % (37.0-53.0); HEMOGLOBIN 10.4 g/dL (11.0-16.0); IMMATURE GRANULOCYTE % 0.3 %; LYMPHOCYTE # 1.3 K/uL (0.8-4.0); LYMPHOCYTE % 22.7 %; MCH 23.1 pg (27.0-34.0); MCHC 30.3 gm/dL (32.0-36.5); MCV 76.1 fl (83.0-98.0); MONOCYTE # 0.6 K/uL (0.0-1.0); MONOCYTE % 10.3 %; MPV 9.4 fl (9.4-12.4); NEUTROPHIL # (ANC) 3.5 K/uL (1.4-9.0); NEUTROPHIL % 59.6 %; NRBC % 0 /100WBC (0-0.00); PLATELET COUNT 210 K/uL (150-450); RBC 4.51 M/uL (3.50-5.50); RDW-CV 18.3 % (11.9-14.6); WBC 5.8 K/uL (4.0-11.0)
--- NOTE | 2016-12-30 04:44 | NUR ---
Significant Event: A/0 X 3, AMBULATES STAND BY ASSIST TO UP AD RODNEY. ALL VSS. NO COMPLICATIONS. NO PAIN. NO SHORTNESS OF BREATH. NO FATIGUE. AMBULTES WITH ABSOLUTELY NO COMPLICATIONS. CATH SITE OPEN TO AIR. HGB HAS IMPROVED TO 10.4 THIS AM. Follow up:
[2016-12-30 04:52] LABS: BLOOD UREA NITROGEN 13 mg/dL (6-24); CALCIUM 8.2 mg/dL (8.5-10.5); CHLORIDE 111 mMol/L (96-110); CO2 21 mMol/L (22-32); CREATININE 0.9 mg/dL (0.6-1.3); ESTIMATED GFR (MDRD EQUATION) > 60; SODIUM 142 mMol/L (135-145)
--- NOTE | 2016-12-30 16:58 | NUR ---
Significant Event: Patient A/O x 3. Up independently. VSS on RA. Denies chest pain or any pain at all. Ambulated multiple times in the hallways independently today without any difficulty or report of shortness of breath. Decided that he would be okay to dismiss tomorrow morning and then have GI finish their workup out patient. Will stay at a friend's house tomorrow, and then brother is coming to stay with him at his apartment on . Patient is scared to go home by himself, although he states he feels like he is okay now that he has been walking so much independently. Bilateral hand PIV's SL. Gave 2nd dose of IV iron today. Denies any other needs throughout the day. Follow up: Continue as per plan of care. Discharge tomorrow.
--- NOTE | 2016-12-31 04:32 | NUR ---
Significant Event:A/Ox3. Afebrile. VSS on RA. Up independantly in the room and halls. No c/o pain. Voiding with no difficulties. Follow up:Discharge today to make appt with GI Clinic. Discharge meds on the chart for MD.
[2016-12-31 05:01] LABS: BASOPHIL # 0.1 K/uL (0.0-0.2); BASOPHIL % 0.8 %; EOSINOPHIL # 0.4 K/uL (0.0-0.5); EOSINOPHIL % 5.6 %; HEMATOCRIT 33.1 % (37.0-53.0); IMMATURE GRANULOCYTE % 0.4 %; LYMPHOCYTE # 1.5 K/uL (0.8-4.0); LYMPHOCYTE % 18.6 %; MCHC 30.2 gm/dL (32.0-36.5); MCV 76.3 fl (83.0-98.0); MONOCYTE # 0.8 K/uL (0.0-1.0); MONOCYTE % 9.7 %; MPV 9.2 fl (9.4-12.4); NEUTROPHIL # (ANC) 5.1 K/uL (1.4-9.0); NEUTROPHIL % 64.9 %; NRBC % 0 /100WBC (0-0.00); PLATELET COUNT 215 K/uL (150-450); RBC 4.34 M/uL (3.50-5.50); RDW-CV 19.2 % (11.9-14.6); WBC 7.8 K/uL (4.0-11.0)
[2016-12-31 05:17] LABS: BLOOD UREA NITROGEN 11 mg/dL (6-24); CALCIUM 8.4 mg/dL (8.5-10.5); CHLORIDE 109 mMol/L (96-110); CO2 24 mMol/L (22-32); CREATININE 1.1 mg/dL (0.6-1.3); ESTIMATED GFR (MDRD EQUATION) > 60; SODIUM 143 mMol/L (135-145)
[2016-12-31] MEDS ORDERED: ASPIRIN (CHILDR81 MG PO (10:34)
[2016-12-31] MEDS ORDERED: VITAMIN B-121000 MCG PO (10:38)
[2016-12-31] MEDS ORDERED: FOLIC ACID1 MG PO (10:43)
[2016-12-31] MEDS ORDERED: PROTONIX40 MG PO (10:47)
[2016-12-31] MEDS ORDERED: IRON325 M1 PO (10:50)
--- NOTE | 2016-12-31 17:35 | NUR ---
Significant Event: A&O. VSS, AFEBRILE, ROOM AIR. UP AD RODNEY. CLEAR LIQUID DIET FOR GI STUDY TODAY. IV REMOVED. DISHCARGE INSTRUCTIONS DISCUSSED, VERBALIZED UNDERSTANDING. BELONGINGS WITH PATIENT. FRIENDS TO TRANSPORT, LAND SURVEY TECHNICIAN ESCORTED TO VEHICLE. Follow up: OUTPATIENT GI APPT
== END 2016-12-31 11:19 | disposition disaster alternative care site (69) | DRG 281 ==
LOC: GMED 16:25 → GPCU 17:40
PROVIDERS: Emergency Medicine; ADMIT Internal Medicine
PROC: B246ZZZ Ultrasonography of Right and Left Heart (ICD-10-PCS; principal; 2016-12-28)
PROC: B2111ZZ Fluoroscopy of Multiple Coronary Arteries using Low Osmolar Contrast (ICD-10-PCS; principal; 2016-12-28)
PROC: 30233N1 Transfusion of Nonautologous Red Blood Cells into Peripheral Vein, Percutaneous Approach (ICD-10-PCS; principal; 2016-12-28)
PROC: 4A023N7 Measurement of Cardiac Sampling and Pressure, Left Heart, Percutaneous Approach (ICD-10-PCS; principal; 2016-12-28)
DX: I21.4 Non-ST elevation (NSTEMI) myocardial infarction (principal); D62 Acute posthemorrhagic anemia; I10 Essential (primary) hypertension; K92.1 Melena; D50.9 Iron deficiency anemia, unspecified; I25.110 Atherosclerotic heart disease of native coronary artery with unstable angina pectoris
CPT/HCPCS: C1769; C1887; C1894; C9113; J0153; J0171; J1200; J1644; J1720; J2250; J2916; J3010; J7030; J7040; J7050; J7120; P9016

== ENCOUNTER → 2016-12-27 | Outpatient (CLI) | payer BC, SELFPAY ==
[~2016-12-27] MED LIST: ASPIR-TRIN325 MG PO; ASPIRIN (CHILDR81 MG PO; ASPIRIN325 MG PO; FOLIC ACID1 MG PO; IRON325 M1 PO; LIPITOR80 MG PO; LOPRESSOR25 MG PO; NITROSTAT0.4 MG SL; NORVASC2.5 MG PO; PLAVIX75 MG PO; PROTONIX40 MG PO; VITAMIN B-121000 MCG PO
== END | disposition disaster alternative care site (69) ==
LOC: GAMB 15:48
DX: R53.1 Weakness (principal); R07.9 Chest pain, unspecified; R06.02 Shortness of breath; R61 Generalized hyperhidrosis; Z79.899 Other long term (current) drug therapy
CPT/HCPCS: A0422; A0425; A0427

== ENCOUNTER 2017-01-15 06:56 | Outpatient (CLI) | payer BC, OTHER ==
[~2017-01-15] VITALS: Ht 172.7 cm; Wt 100.8 kg
--- NOTE | ~2017-01-15 | CATH ---
Cardiac Interventional Report Demographics Patient Name DRE Willett Gender Male Date of 1955 Age 61 year(s) Patient Number [id number] Date of Study 01/15/2017 Visit Number [id number] Room Number G6[address] [place] [id number] Ht 172.72 cm Wt 99.2 kg Referring Iman Reyna Primary Physician Physician Haley GOLDSTEIN Performing Efstratiou Secondary Physician Physician Shannon Pike MD Diagnostic Efstratiou Assisting Physician Physician Shannon Pike MD Interventional Efstratiou Physician Compensation Supervisor Physician Shannon Pike MD Findings and Conclusions Interventional Findings and Conclusion 70% mid LAD with previous FFR 0.71 PCI to LAD Successful AURA x2 to LAD Interventional Recommendations Continue Aspirin and Plavix Procedure Description The patient was brought to the diagnostic cardiac catheterization-EP laboratory in the fasting, non-sedated state. Informed consent was obtained in the written and verbal form after the risks and benefits were explained. The patient had no further questions and agreed to proceed. The planned puncture-incision site(s) were shaved and prepped with ChloraPrep and draped in the usual sterile manner. Conscious sedation, supplemental oxygen, and pain control medications were delivered by a registered nurse under physician guidance. Surface ECG rhythm, blood pressure measurement, and pulse oximetry were monitored throughout the procedure. Arterial access. The access site was infiltrated with lidocaine. The vessel was entered with the Seldinger technique. A sheath was advanced into the vessel and used for catheter placement. Selective left coronary angiography. A catheter was advanced into the left coronary vessel ostium under Fluoroscopic guidance. Contrast was injected by hand. Images were obtained in multiple projections. Angioplasty and Stent Placement: A guiding catheter was used to intubate the vessel. A 0.14 wire was then used to cross the lesion. A balloon catheter was placed across the lesion and inflated. The balloon catheter was then removed. A Drug Eluting Stent was placed and inflated. Post placement angiograms were performed. Arterial artery hemostasis was achieved. The patient was transferred to a regular nursing floor via cart accompanied by a nurse. The patient left the laboratory in stable condition. Interventional Cath Status: Elective Procedure Procedure Type PCI procedure:Drug Eluting Coronary Stent:, LAD Indications: Cardiac catheterization indicating PCI and Chest pain. The procedure was explained in detail to the patient. Risks, complications and alternative treatments were reviewed. Written consent was obtained. Medications Reviewed with Patient prior to Procedure. Angiographic Findings Dominance: Right Cardiac Arteries and Lesion Findings LAD: Lesion on Mid LAD: Mid subsection.80% stenosis reduced to 0%. Pre procedure CLOVIS III flow was noted. Post Procedure CLOVIS III flow was present. The guidewire cross was successful.Culprit lesion. Devices used - Whisper Wire .014 x 190. Number of passes: 1. - Whisper Wire .014 x 190. Number of passes: 1. - Emerge Balloon 2.0 x 20. 3 inflation(s) to a max pressure of: 14 nora. - Promus Premier 2.5 x 24 Stent. 2 inflation(s) to a max pressure of: 16 nora. - NC Emerge Balloon 3.5 x 12. 2 inflation(s) to a max pressure of: 14 nora. Lesion on Prox LAD: Distal subsection.80% stenosis reduced to 0%. Pre procedure CLOVIS III flow was noted. Post Procedure CLOVIS III flow was present. The guidewire cross was successful.Culprit lesion. Devices used - Promus Premier 3.0 x 24 Stent. 1 inflation(s) to a max pressure of: 18 nora. - NC Emerge Balloon 3.5 x 12. 1 inflation(s) to a max pressure of: 18 nora. There is a previous stent on Mid CX. There is a previous stent on Prox RCA Mid subsection. Coronary Tree Procedure Data Procedure Date Date: 01/15/2017Start: 08:39 AMEnd: 09:39 AM Entry Locations - Retrograde Percutaneous access was performed through the Right Radial artery (Primary location). A 6 Fr sheath was inserted. Unsuccessful closure attempt was performed using: an R band. Hemostasis was successfully obtained using Mechanical Compression. Closure Comments: R band applied by Tmaara, 10 ml of air in band.. Procedure Medications Order and Administration + + + + + !Time !Medication !Dosage !Route ! + + + + + !01/15/2017 08:35 AM !Versed !1 mg !I.V. ! + + + + + !01/15/2017 08:37 AM !Fentanyl !25 mcg ! ! + + + + + !01/15/2017 08:42 AM !Radial Nitroglycerin !200 mcg !I.A. ! + + + + + !01/15/2017 08:42 AM !Radial Verapamil !1.5 mg !I.A. ! + + + + + !01/15/2017 08:42 AM !Radial Heparin (ACC_3) !5000 units !I.A. ! + + + + + !01/15/2017 08:43 AM !Heparin (ACC_3) !3000 units !I.V. ! + + + + + !01/15/2017 08:45 AM !Oxygen !2 l/min !NC ! + + + + + !01/15/2017 08:46 AM !0.9% NaCl !300 ml !I.V. bolus ! + + + + + !01/15/2017 09:25 AM !Integrilin (ACC_7) !10 mg !I.C. ! + + + + + !01/15/2017 09:26 AM !Nitroglycerin !200 mcg !I.C. ! + + + + + Devices Used - A6 Fr. XBLAD 3.5 Guide Catheterwas used for:LAD Intervention. - A6 Fr. Guidlinerwas used for:LAD Intervention. Contrast Material - Isovue [id number] ml Fluoroscopy Time: Diagnostic: 18:30 minutes. Total: 18:30 minutes. Fluoroscopy Dose: Diagnostic: 1654 mGy. Total: 1654 mGy. Estimated Blood Loss: 17 ml. Additional [facility] PCI Information PCI Indication:PCI for high risk Non-STEMI or unstable angina. Medical History Performed Procedures and Imaging Results - No [facility] stress or imaging studies were performed. Allergies - Other:(Mycins). - Other:(Macrolide). Risk Factors The patient risk factors include:prior PCI;hypertension, family history of premature CAD, last creatinine: 1.2 mg/dl, creatinine clearance: 91.85 ml/min, dyslipidemia and prior [place] . Admission Data Admission Date: 01/15/2017 Admission Time: 06:56 AM Admit Source: Other Insurance Payors: Private health insurance. Admission Medications + +------+------+ + + + + !Medication !Dosage!Times !Last !Last !Administered !Comments ! ! ! !Per !Delivery !Delivery ! ! ! ! ! !Day !Date !Time ! ! ! + +------+------+ + + + + !Aspirin ! ! ! ! !Yes ! ! !(any) ! ! ! ! ! ! ! + +------+------+ + + + + !Statin (any)! ! ! ! !Yes ! ! + +------+------+ + + + + !Beta Shonda! ! ! ! !Yes ! ! !(any) ! ! ! ! ! ! ! + +------+------+ + + + + !Clopidogrel ! ! ! ! !Yes ! ! + +------+------+ + + + + Clinical Evaluation Leading to Procedure - Anti-anginal medications were prescribed during the past two weeks. The medication is: Beta Blockers. Snapshots Hemodynamics Condition: Rest O2 Consumption: Estimated: 236.26Heart Rate: 54 bpm Pressures (mmHg) +-----+ + !Site !Pressure ! +-----+ + !AO !80/34 (60) ! +-----+ + !AO !90/56 (73) ! +-----+ + Shunts Oxygen Values O2 Capacity 183.6 O2 Consumption 236.26 Signatures dtt: Sabra Warren dtd: 01/15/17 0839 Physician Self Edit
--- NOTE | ~2017-01-15 | DS ---
PATIENT'S NAME: KRISTY ERICKSON [facility] AGE: 62 Y [address] ROOM: [place] [address] LOCATION: [facility]AT ADMIT DATE: 01/15/2017 Discharge Summary DISCHARGE DATE: 01/17/2017 FAMILY PHYSICIAN: Axel Valerio MD ATTENDING PHYSICIAN: Sabra Warren PRIMARY DISCHARGE DIAGNOSIS: Non-ST elevated myocardial infarction. SECONDARY DISCHARGE DIAGNOSES: 1. Coronary artery disease. 2. Dyslipidemia. 3. Ejection fraction of 55%. PROCEDURES: Selective coronary angiography and percutaneous intervention with drug-eluting stent x2 to the LAD. HOSPITAL COURSE: This is a 61-year-old male with known coronary artery disease and a previous positive FFR. He was cleared by GI Service to tolerate dual antiplatelet therapy. He was then admitted for this planned PCI. Please see history and physical for full details of admission. The patient underwent a selective coronary angiography and percutaneous intervention with a drug- eluting stent x2 placed to his LAD through his right radial artery. He was subsequently transferred postprocedure to the progressive care unit for continued monitoring of his procedure site as well as postprocedure EKG and vital sign monitoring. On 01/16/2017, his troponin levels continued to trend up and he was started with cardiac rehab. On 01/17/2017, he was found to be with decreased troponin trend and was found to be in stable condition to be discharged to home. DIAGNOSTICS: Cardiac enzyme trend during hospitalization showed an admission cardiac enzymes of CPK 235, CK-MB of 1.6, troponin I of less than 0.04. Cardiac enzymes peaked with a CPK of 256, CK-MB of 6.5, and troponin I of 1.03 and upon discharge, his cardiac enzymes were CPK of 231, CK-MB of 6.3, and troponin I of 0.721. Renal function upon admission showed a BUN and creatinine of 17 and 1.2 respectively with a GFR of greater than 60. Upon discharge, his renal function showed a BUN and creatinine of 14 and 0.9 respectively with a GFR of greater than 60. Lipid evaluation showed a total cholesterol of 136, triglycerides 142, HDL 35, and LDL 73. DISCHARGE ORDERS: The patient is discharged to home with groin precaution teaching as well as nitroglycerin instructions. He is to follow up with Dr. Warren in 2 weeks. DISCHARGE MEDICATIONS: 1. Nitroglycerin 0.4 mg sublingual as needed for chest pain. PATIENT'S NAME: KRISTY ERICKSON [facility] AGE: 62 Y [address] ROOM: [place], [place] [address] LOCATION: GCAT ADMIT DATE: 01/15/2017 Discharge Summary DISCHARGE DATE: 01/17/2017 FAMILY PHYSICIAN: Axel Valerio MD ATTENDING PHYSICIAN: Sabra Warren 2. Aspirin 81 mg p.o. daily. 3. Lipitor 80 mg p.o. daily. 4. Plavix 75 mg p.o. daily. 5. Vitamin B12 1000 mcg p.o. daily. 6. Ferrous sulfate 325 mg p.o. 3 times daily. 7. Folic acid 1 mg p.o. twice daily. 8. Metoprolol 12.5 mg p.o. twice daily. 9. Protonix 40 mg p.o. daily. DISPOSITION: The patient was discharged to home in stable condition. He was given instructions related to his need to make a followup appointment with Dr. Warren in 2 weeks. AZALIA CORLEY APRN FOR MD JENNIFER LO/modl /[id number] d: 02/16/17 0242 t: 02/19/17 1824, DISCHARGE SUMMARY
[2017-01-15 07:25] LABS: BASOPHIL # 0.1 K/uL (0.0-0.2); BASOPHIL % 0.7 %; EOSINOPHIL # 0.4 K/uL (0.0-0.5); EOSINOPHIL % 5.3 %; HEMOGLOBIN 13.5 g/dL (11.0-16.0); IMMATURE GRANULOCYTE % 0.3 %; LYMPHOCYTE # 1.8 K/uL (0.8-4.0); LYMPHOCYTE % 25.7 %; MCV 79.6 fl (83.0-98.0); MONOCYTE # 0.6 K/uL (0.0-1.0); MONOCYTE % 7.9 %; MPV 9.4 fl (9.4-12.4); NEUTROPHIL # (ANC) 4.3 K/uL (1.4-9.0); NEUTROPHIL % 60.1 %; NRBC % 0 /100WBC (0-0.00); WBC 7.1 K/uL (4.0-11.0)
[2017-01-15 07:26] LABS: MCHC 31.4 gm/dL (32.0-36.5); PLATELET COUNT 270 K/uL (150-450); RDW-CV 24.1 % (11.9-14.6)
[2017-01-15 07:32] LABS: INR - (THERAPEUTIC) 0.98 (0.92-1.07); PROTIME 10.3 SECONDS (9.8-11.4); PTT 26 SECONDS (25-32)
[2017-01-15 07:44] LABS: ALBUMIN 3.4 gm/dL (3.5-5.0); ALK PHOS 109 IU/L (33-138); ALT 29 IU/L (12-78); ANION GAP 12.1 (10.0-19.0); AST 28 IU/L (10-40); BLOOD UREA NITROGEN 17 mg/dL (6-24); CALCIUM 8.4 mg/dL (8.5-10.5); CHLORIDE 110 mMol/L (96-110); CO2 23 mMol/L (22-32); CREATININE 1.2 mg/dL (0.6-1.3); POTASSIUM 4.1 mMol/L (3.7-5.1); SODIUM 141 mMol/L (135-145); TOTAL PROTEIN 7.5 g/dL (6.0-8.4)
[2017-01-15 07:45] LABS: ESTIMATED GFR (MDRD EQUATION) > 60; TOTAL BILIRUBIN 0.7 mg/dL (0.0-1.5)
[2017-01-15 10:59] LABS: CPK 235 IU/L (35-332)
--- NOTE | 2017-01-15 13:37 | NUR ---
all the 1045-46 assessments and vs were done at 0945 when the pt returned from mushroom laborer,
--- NOTE | 2017-01-16 05:02 | NUR ---
Significant Event: Pt A&Ox3. Vital signs remained stable, RA. No s/s of complications to Rt radial site. Only c/o pain is located to one area on chest; doesn't request anything. Cardiac diet. SBA to bathroom. PIV in Lt hand, SL. Follow up: Plan to d/c today.
[2017-01-16 05:32] LABS: ALK PHOS 95 IU/L (33-138); ALT 28 IU/L (12-78); AST 32 IU/L (10-40); BLOOD UREA NITROGEN 14 mg/dL (6-24); CALCIUM 8.3 mg/dL (8.5-10.5); CHLORIDE 110 mMol/L (96-110); CO2 22 mMol/L (22-32); CREATININE 0.9 mg/dL (0.6-1.3); ESTIMATED GFR (MDRD EQUATION) > 60; SODIUM 140 mMol/L (135-145); TOTAL BILIRUBIN 0.8 mg/dL (0.0-1.5); TOTAL PROTEIN 6.6 g/dL (6.0-8.4)
--- NOTE | 2017-01-16 17:04 | NUR ---
Significant Event:Patient has not had any chest pain today. Up in bee several times. TN-I is elevated today- Dr. Dixon wants to watch him tonight. Right wrist remains soft, bandaid dry. Follow up:Continue to monitor lab work and EKG's and may dc tomorrow
--- NOTE | 2017-01-17 04:05 | NUR ---
Significant Event: A/0X3. UP AB RODNEY IN ROOM. WALKED HALLS THIS EVENING. TURNS SELF. AFEBRILE. VSS ON RA. DENIES CP OR PAIN OF ANY SORT. IV TO L) HAND SL. R) RADIAL SOFT. NO S/S OF BRUSING OR HEMATOMA. BANDAID INTACT. VOIDS FINE. NO BM THIS SHIFT. TROPONIN IS TRENDING DOWN. Follow up: CONTINUE WITH PLAN OF CARE. POSSIBLY D/C HOME TODAY.
--- NOTE | 2017-01-17 17:15 | NUR ---
D:Patient discharged home. Is happy to be going. Has been up ad david in hallways without any c/o chest pain. Is to follow-up with Dr. Hilliard in two weeks, he needs to call and make that appoointment tomorrow. Right wrist is soft, bandaid changed to site. IV dc'd. Off monitor. Has personal belongings. DC'd per wheelchair at 1335, released to friend to return home.
== END 2017-01-17 13:35 | disposition disaster alternative care site (69) ==
LOC: GCAT 06:56 → GPCU 06:56 → GPOC 07:00 → GPCU 09:05 → GCAT 01-17 13:35
PROVIDERS: Internal Medicine Cardiovascular Disease
PROC: 4A023N7 Measurement of Cardiac Sampling and Pressure, Left Heart, Percutaneous Approach (ICD-10-PCS; principal; 2017-01-15)
PROC: B210YZZ Fluoroscopy of Single Coronary Artery using Other Contrast (ICD-10-PCS; 2017-01-15)
PROC: B215YZZ Fluoroscopy of Left Heart using Other Contrast (ICD-10-PCS; 2017-01-15)
DX: R00.1 Bradycardia, unspecified (principal); R94.31 Abnormal electrocardiogram [ECG] [EKG]
CPT/HCPCS: C1725; C1769; C1874; C1887; C1894; C9600; J1327; J1644; J2250; J3010; J7030

== ENCOUNTER → 2017-02-01 | Outpatient (CLI) | payer BC ==
[2017-02-01 14:00] LABS: BASOPHIL % 0.6 %; EOSINOPHIL # 0.3 K/uL (0.0-0.5); EOSINOPHIL % 5.9 %; HEMATOCRIT 43.4 % (37.0-53.0); IMMATURE GRANULOCYTE % 0.6 %; LYMPHOCYTE # 1.2 K/uL (0.8-4.0); LYMPHOCYTE % 21.4 %; MCH 26.4 pg (27.0-34.0); MCHC 32.3 gm/dL (32.0-36.5); MCV 81.7 fl (83.0-98.0); MONOCYTE # 0.4 K/uL (0.0-1.0); MONOCYTE % 8.1 %; MPV 10.7 fl (9.4-12.4); NEUTROPHIL # (ANC) 3.5 K/uL (1.4-9.0); NEUTROPHIL % 63.4 %; NRBC % 0 /100WBC (0-0.00); PLATELET COUNT 218 K/uL (150-450); RBC 5.31 M/uL (3.50-5.50); RDW-CV 25.4 % (11.9-14.6); WBC 5.4 K/uL (4.0-11.0)
== END ==
LOC: LNHI 13:14
PROVIDERS: Internal Medicine Cardiovascular Disease
DX: K92.2 Gastrointestinal hemorrhage, unspecified (principal)

== ENCOUNTER → 2017-04-08 | Outpatient (CLI) | payer BC ==
--- NOTE | ~2017-04-08 | ESTC ---
Cardiac Perfusion Imaging Demographics Patient Name DRE Willett Gender Male Patient Number [id number] Race Visit Number [id number] [place] [id number] Room Number Accession Number [id number] Height 68 inches Date of 1955 Weight 225 pounds MD Briana Pike MD Interpreting Jami Ghosh Date of study 04/08/2017 Physician Supervising /MLP Briana CONTRERAS Technologist Corina Pike MD Ordering Physician Briana Pike MD metal room dental technician Stress ECG Reading Briana Ortega Nurse Al Mistry Physician Shahzad GOLDSTEIN RN Medications Reviewed with Patient prior to Procedure. Procedure Procedure Type: Nuclear Stress Test:Pharmacological, Lexiscan, Cardiolite Stress Test Procedure Start time: 04/08/2017 08:05 Indications: History of CAD and Dyslipidemia. Risk Factors The patient risk factors include:prior PCI on 01/15/2017;obesity, treated hypercholesterolemia, family history of premature CAD, dyslipidemia and prior [place] . Conclusions Impression ECG portion of the lexiscan stress test is clinically negative for ischemia by diagnostic criteria. Myocardial perfusion imaging is mildly abnormal. The images reveal a reversible defect in the basal to mid inferior wall consistent with ischemia in the territory of the right coronary artery . Overall left ventricular systolic function was normal. Calculated LVEF is 61% and TID ratio is 1.02. This is a low to intermediate risk stress test. Stress Protocols Resting ECG Normal sinus rhythm. Pre-stress physical exam: Patient assessed by Dr Warren prior to testing. Stress Protocol:Pharmacologic Peak HR:89 bpm HR/BP product:[id number] Peak BP:116/72 mmHg Predicted HR: 159 bpm % of predicted HR: 56 ECG Findings No ECG changes suggestive of ischemia. Arrhythmias No rhythm abnormality. Symptoms Shortness of breath. Stress Interpretation Appropriate hemodynamic response to Lexiscan. No significant ST-T wave changes with Lexiscan. ECG portion is negative for ischemia by diagnostic criteria. Imaging Results Summed scores - Summed stress score: 1 - Summed rest score: 0 - Summed difference score: 1 Stress ejection Ejection fraction:61 % EDV :100 ml ESV :39 ml Stroke volume :61 ml LV mass :118 gr Imaging Protocols Rest Stress Isotope:Tc99m Sestamibi IV Isotope: Tc99m Sestamibi IV Isotope dose:14.6 mCi Isotope dose:44 mCi Date:04/08/2017 07:07 Date:04/08/2017 08:38 Technique: SPECT Technique: Gated Supine SPECT Supine Scan Time:30 minutes post injection Scan Time:45-60 minutes post injection Procedure Medications - Regadenoson (Lexiscan) 0.4 mg IV over 10-15 sec. I.V. 0.4 mg. Medications administered per verbal order and read back to physician prior to administration. Medical History Admission Data Admission date: 04/08/2017 Admission Time: 06:43 Hospital Status: Outpatient. Signatures dtt: GENA NAJERA dtd: 04/08/17 [facility] Physician Self Edit
== END | disposition disaster alternative care site (69) ==
LOC: GRAD 06:43
DX: I25.10 Atherosclerotic heart disease of native coronary artery without angina pectoris (principal); E78.00 Pure hypercholesterolemia, unspecified; E78.5 Hyperlipidemia, unspecified; E66.9 Obesity, unspecified; I25.2 Old myocardial infarction; R94.39 Abnormal result of other cardiovascular function study; Z82.49 Family history of ischemic heart disease and other diseases of the circulatory system
CPT/HCPCS: A9500; J2785